=== PATIENT | male | born 1965 | race Two or more races ===

== ENCOUNTER 2021-06-03 13:52 | Emergency (ER) | payer MEDICAID ==
[~2021-06-03] VITALS: Ht 167.6 cm; Wt 95.0 kg
[2021-06-03 13:52] VITALS: BP 120/80
== END 2021-06-03 15:24 | disposition home or self-care (01) ==
LOC: ER 13:53
DX: U07.1 COVID-19 (principal); F17.210 Nicotine dependence, cigarettes, uncomplicated
CPT/HCPCS: 87635; 99283; C9803

== ENCOUNTER 2021-06-22 18:42 | Emergency (ER) | payer MEDICAID ==
[~2021-06-22] VITALS: Ht 167.6 cm; Wt 95.4 kg
[2021-06-22] MEDS ORDERED: BUDE180A INH (18:54)
[2021-06-22] MEDS ORDERED: LEVO500T90 PO (18:54)
[2021-06-22] MEDS ORDERED: BENZ-38 PO (18:54)
[2021-06-22] MEDS ORDERED: ALBU6.7H9 INH (18:54)
[2021-06-22 19:03] VITALS: BP 130/81
== END 2021-06-22 19:16 | disposition home or self-care (01) ==
LOC: ER 18:44
DX: J40 Bronchitis, not specified as acute or chronic (principal); R05.9 Cough, unspecified; Z79.2 Long term (current) use of antibiotics; Z79.899 Other long term (current) drug therapy
CPT/HCPCS: 71045; 99283

== ENCOUNTER 2023-06-19 08:21 | Emergency (ER) | payer MEDICAID ==
[~2023-06-19] VITALS: Ht 172.7 cm; Wt 95.5 kg
[~2023-06-19 08:21] MED LIST: ALBU6.7H14 INH; BUDE180A INH
[2023-06-19 08:24] VITALS: BP 123/66; PULSE 66; RESP 18; TEMP 98; O2SAT 98
[2023-06-19] MEDS ORDERED: PROM118S5 PO (10:34)
[2023-06-19] MEDS ORDERED: ALBU8HFA INH (10:34)
[2023-06-19] MEDS ORDERED: PRED10TA23 PO (10:34)
== END 2023-06-19 10:43 | disposition home or self-care (01) ==
LOC: ER 08:22
DX: B34.9 Viral infection, unspecified (principal); Z20.822 Contact with and (suspected) exposure to COVID-19; R05.9 Cough, unspecified; Z79.899 Other long term (current) drug therapy; Z87.891 Personal history of nicotine dependence
CPT/HCPCS: 36415; 71045; 87811; 99284